=== PATIENT | female | born 1980 | race African-American/Black ===

== ENCOUNTER 2016-12-09 06:25 | Day surgery (SDC) | payer MEDICAID ==
[2016-12-08 10:51] VITALS: BMI 25.6
[2016-12-09] VITALS (12 sets, daily range): BP systolic 94–158; BP diastolic 49–85; PULSE 66–93; RESP 15–19; Ht 167.6 cm; Wt 70.3 kg
[~2016-12-09] VITALS: Ht 167.6 cm; Wt 70.3 kg
[2016-12-09] MEDS ORDERED: LIDOCAINE 2% (SDV) 5 ML INJ ONE (07:00)
[2016-12-09 07:27] LABS: ADD SCAN DIFF NO
[2016-12-09] MEDS ORDERED: ISOSULFAN BLUE 1% 5 ML INJ SC ONE (07:38)
[2016-12-09 07:46] LABS: INR 0.97; PROTIME 12.9 Sec (12.2-14.2)
[2016-12-09] MEDS ORDERED: MIDAZOLAM 1 MG/ML 2 ML INJ ONE (07:48)
[2016-12-09] MEDS ORDERED: GLYCOPYRROLATE 0.4 MG INJ ONE (07:48)
[2016-12-09] MEDS ORDERED: NEOSTIGMINE 3 MG/3 ML SYRINGE ONE (07:48)
[2016-12-09] MEDS ORDERED: FENTAnyl 50 MCG/ML VIAL ONE ×2 (07:48→08:42)
[2016-12-09] MEDS ORDERED: ROCURONIUM 50 MG INJ ONE (07:48)
[2016-12-09] MEDS ORDERED: PROPOFOL 20 ML ONE (07:48)
[2016-12-09] MEDS ORDERED: ONDANSETRON 4 MG INJ ONE (07:48)
[2016-12-09] MEDS ORDERED: CEFAZOLIN 1 GM INJ ONE (07:48)
[2016-12-09] MEDS ORDERED: DEXAMETHASONE 4 MG/ML 1 ML INJ ONE (07:49)
[2016-12-09 07:51] LABS: ALBUMIN 4.2 g/dl (3.3-4.9); ALBUMIN/GLOBULIN RATIO 1.1; BILIRUBIN,INDIRECT 0.1 mg/dl (0-1.1); BILIRUBIN,TOTAL 0.1 mg/dl (0.2-1.3); POTASSIUM 4.3 mmol/L (3.5-5.1)
[2016-12-09 07:52] LABS: CALCIUM 9.1 mg/dl (8.4-10.2); CREATININE 0.63 mg/dl (0.44-1.00)
[2016-12-09 08:02] LABS: BASOPHILS % 0.4 % (0.0-2.0); EOSINOPHILS % 0.8 % (0.0-7.0); HEMATOCRIT 32.3 % (37.0-47.0); HEMOGLOBIN 9.7 g/dl (12.0-16.0); LYMPHOCYTES % 41.1 % (15.0-51.0); MEAN CORPUSCULAR HEMOGLOBIN 22.1 pg (29.0-33.0); MEAN CORPUSCULAR VOLUME 73.7 fl (82.0-101.0); MEAN PLATELET VOLUME 10.4 fl (7.4-10.4); MONOCYTE # 0.5 10^3/ul (0.3-0.9); MONOCYTES % 10.9 % (0.0-11.0); NEUTROPHIL # 2.3 10^3/ul (1.6-7.5); NEUTROPHILS % 46.6 % (39.0-77.0); PLATELET COUNT 335 10^3/UL (140-415); RED BLOOD COUNT 4.38 10^6/ul (4.20-5.40); RED CELL DISTRIBUTION WIDTH 15.7 % (11.5-14.5)
[2016-12-09 08:29] LABS: PARTIAL THROMBOPLASTIN TIME 20.9 Sec (25.0-35.0)
[2016-12-09] MEDS ORDERED: HYDROmorphONE (0.2 MG/ML) 10ML SYG IV PRN ×2 (09:00)
[2016-12-09] MEDS ORDERED: DIPHENHYDRAMINE 50 MG INJ IV PRN (09:00)
[2016-12-09] MEDS ORDERED: FENTAnyl 50 MCG/ML VIAL IV PRN ×3 (09:00)
[2016-12-09] MEDS ORDERED: TRIMETHOBENZAMIDE 100 MG/ML VIAL IM PRN (09:00)
[2016-12-09] MEDS ORDERED: hydrALAzine 20 MG INJ IV PRN (09:00)
[2016-12-09] MEDS ORDERED: MEPERIDINE 25 MG INJ IV PRN (09:00)
[2016-12-09] MEDS ORDERED: EPHEDrine SULFATE 50 MG/5 ML SYG IV PRN (09:00)
[2016-12-09] MEDS ORDERED: ONDANSETRON 4 MG INJ IV PRN ×2 (09:00→10:00)
[2016-12-09] MEDS ORDERED: MIDAZOLAM 1 MG/ML 2 ML INJ IV PRN (09:00)
[2016-12-09] MEDS ORDERED: LABETALOL HCL 20MG INJ IV PRN (09:00)
[2016-12-09] MEDS ORDERED: SUGAMMADEX SODIUM 200 MG/2 ML VIAL IV ONE (09:32)
[2016-12-09] MEDS ORDERED: METOCLOPRAMIDE 10 MG INJ ONE (09:37)
[2016-12-09] MEDS ORDERED: ACETAMINOPHEN 1000MG/100ML IV 100 ML IVPB PRN (10:00)
[2016-12-09] MEDS ORDERED: D5W-0.45 NACL + KCL 20 MEQ 1,000 ML IV SCH (10:00)
[2016-12-09] MEDS ORDERED: morphine 2 MG INJ IV PRN (10:00)
--- NOTE | 2016-12-09 10:14 | OPR ---
DATE OF OPERATION: 12/09/2016 PREOPERATIVE DIAGNOSIS: Invasive cancer, left breast. POSTOPERATIVE DIAGNOSIS: Invasive cancer, left breast. OPERATION PERFORMED: Left partial mastectomy and axillary dissection utilizing sentinel lymph node technique. ANESTHESIA: General. ANESTHESIOLOGIST: Dr. Quintero SURGEON: Nick Giraldo MD POWER PLANT SUPERINTENDENT: Dr. Barnett INDICATIONS FOR PROCEDURE: The patient is an unfortunate 36-year-old female who noticed an enlargin g mass in her left breast that was at least 3 cm. Radiographic workup and subsequent biopsy reveale d invasive cancer. She was counseled as to the need for surgery. She consented and was scheduled f or a left partial mastectomy and axillary dissection utilizing sentinel lymph node technique. DESCRIPTION OF PROCEDURE: The patient was brought to the operating theater and placed under general endotracheal tube anesthesia. The left breast and axillary region was prepped and draped in the [facility] sterile fashion. Approximately 4 mL of 1% Lymphazurin blue dye were then injected peritumorally and the breast was gently massaged for approximately 12 minutes. At this point, a 4-cm incision wa s made in the left axillary hairline. The subcutaneous tissue was dissected with cautery down throu gh the clavipectoral fascia. A dye-stained lymphatic was identified and traced to a sentinel node. There were some additional enlarged nodes. Based on the size of the primary tumor, Dr. Giraldo made the decision to proceed with a level 1 dissection. With blunt dissection along the chest wall the l matheus thoracic nerve was identified and kept out of harm's way. More superiorly the axillary vein and thoracodorsal neurovascular bundles were identified and kept out of harm's way. Node-bearing tissu e between the long thoracic nerve and thoracodorsal nerve was then meticulously harvested using the LigaSure device. The sentinel node was marked and evaluated intraoperatively with cytology. This was performed by attending pathologist, Dr. Glenys Riddle. The cytology was negative for obvious metas tatic disease. Therefore, the specimen was sent for permanent pathologic analysis and no additional lymph nodes were removed. The wound was irrigated. A #10 Kyrgyz Kingsley-Dalton drain was then brou ght through the left mid axillary line, cut to size, and laid within the axilla. It was secured in place with 2-0 nylon suture in the standard fashion. The skin was then reapproximated with a 4-0 Petey ryl suture in subcuticular fashion. Attention was then directed to performing a partial mastectomy. A periareolar incision was made fro m the 3 o'clock location through the 6 o'clock location to the 9 o'clock location. Subcutaneous tis sierra was dissected with cautery. Wide circumferential dissection of the tissue associated with the m ass then took place, taking great care to ensure adequate margin. The specimen was elevated, transe cted and oriented. It was then inspected by Dr. Giraldo and there was a concern that the margin would be inadequate, primarily the superior portion of the resection, but partially on the medial; theref ore, additional superior margin tissue was resected, oriented and sent separately for permanent path ologic analysis. The wound was irrigated. Minimal bleeding was controlled with cautery. The incis ion was then closed in 2-layer fashion with a layer of 4-0 Vicryl sutures placed in deep dermal fash ion, followed by 5-0 PDS in subcuticular fashion. Benzoin and Steri-Strips were then applied to bot h incisions. The patient tolerated the procedure well. Estimated blood loss was 30 mL. There were no complications and the patient was transported in stable condition to the recovery room. Dictated By: NICK GUTHRIE/TALITA Conf#: [id number] DID#: [id number]
[2016-12-09] MEDS: HYDROmorphONE (0.2 MG/ML) 10ML SYG IV PRN ×2 (10:15→10:28)
[2016-12-09] MEDS ORDERED: HYDROCODONE/APAP (5/325) TAB PO ONE (11:00)
[2016-12-09] MEDS ORDERED: CEFAZOLIN 2 GM/50 ML (PMX) 50 ML IVPB ONE (12:00)
[2016-12-09] MEDS ORDERED: SOD CHLORIDE 0.9% 1,000 ML IV SCH (12:00)
== END 2016-12-09 12:20 | disposition home or self-care (01) ==
LOC: SDS 06:25
PROVIDERS: ATTEND Surgery Surgical Oncology
DX: D05.12 Intraductal carcinoma in situ of left breast (principal)
CPT/HCPCS: 19301; 38500; 38792; 80053; 85025; 85610; 85730; 88307; 88331; J0690; J1100; J1170; J2250; J2405; J2765; J3010; Z7512; Z7610; J2710; Q9968

== ENCOUNTER 2017-05-03 05:43 | Day surgery (SDC) | payer BC, MEDICAID ==
[2017-05-02 11:22] VITALS: BMI 26.7
[~2017-05-03] VITALS: Ht 167.6 cm; Wt 72.7 kg
[2017-05-03] VITALS (10 sets, daily range): BP systolic 106–114; BP diastolic 67–75; PULSE 59–77; RESP 12–18; Ht 167.6 cm; Wt 72.7 kg
[2017-05-03] MEDS ORDERED: HYDR-905 PO (06:45)
[2017-05-03] MEDS ORDERED: SODIUM CL BACTERIOSTATIC 30 ML INJ ONE (06:54)
[2017-05-03] MEDS ORDERED: GENTAMICIN 80 MG INJ ONE (06:54)
[2017-05-03] MEDS ORDERED: POLYMYXIN/BACITRACIN 1L IRRIG ONE (06:54)
--- NOTE | 2017-05-03 07:22 | HPN ---
Date/Time of Note Date/Time of Note DATE: 05/03/17 TIME: 07:22 Interval H&P Admission Note Pt. seen H&P reviewed: No system changes MICHELLE PERKINS MD May 03, 2017 07:22
[2017-05-03] MEDS ORDERED: BUPIVACAINE 0.5%/EPI (SDV) 30 ML INJ ONE (07:23)
[2017-05-03] MEDS ORDERED: ROCURONIUM 50 MG INJ ONE (07:56)
[2017-05-03] MEDS ORDERED: LIDOCAINE 2% (SDV) 5 ML INJ ONE (07:56)
[2017-05-03] MEDS ORDERED: PROPOFOL 20 ML ONE (07:56)
[2017-05-03] MEDS ORDERED: DEXAMETHASONE 4 MG/ML 1 ML INJ ONE (07:56)
[2017-05-03] MEDS ORDERED: ONDANSETRON 4 MG INJ ONE (07:57)
[2017-05-03] MEDS ORDERED: morphine 2 MG INJ IV PRN (08:00)
[2017-05-03] MEDS ORDERED: ONDANSETRON 4 MG INJ IV PRN ×2 (08:00→09:00)
[2017-05-03] MEDS ORDERED: OXYCODONE/ACETAMINOPHEN (5/325) TAB PO PRN ×3 (08:00→09:00)
[2017-05-03] MEDS ORDERED: GLYCOPYRROLATE 0.4 MG INJ ONE (08:41)
[2017-05-03] MEDS ORDERED: NEOSTIGMINE 3 MG/3 ML SYRINGE ONE (08:41)
--- NOTE | 2017-05-03 08:54 | OPR ---
Date/Time of Note Date/Time of Note DATE: 05/03/17 TIME: 08:45 Operative Report Free Text/Dictation Plastic Surgery Operative Report Preoperative diagnosis: left breast CA Postoperative diagnosis: same Procedure: bilateral nipple delay with subareolar biopsy Surgeon: yara Davis.:n/a Anesthesia: general EBL: min IV fluids: per flow sheet Findings: n/a Complications: none Dispo:home Indications for procedure: 36yo F presents for a bilateral nipple delay and subareolar biopsy as a staged procedure before her upcoming mastectomy. The risks, benefits, alternatives of performing this procedure were discussed with the patient including the risks of bleeding, infection, wound healing problems, asymmetry, partial or total nipple necrosis, positive margins and need for nipple excision, his nipple sensation, and the patient states that she understands these risks and would like to proceed with the procedure. All questions were answered, no guarantees were given with regards to the outcome of this procedure. Description of procedure: The patient was brought to the operating room at [facility] where general anesthesia was induced. Next, the patient was prepped and draped in usual sterile fashion with ChloraPrep. An inferior periareolar with lateral extension incision was marked, and then a total of 5 cc of 0.5% Marcaine with 1: 200,000 epinephrine were injected into the planned incision site in each breast. The 10 blade was then used to make an incision in the right breast in the marked location, and then the electrocautery was used to dissect into the subcutaneous tissue. The mastectomy flap was elevated to the areolar border using electrocautery. Next, the 10 blade was used to dissect underneath the areola in the subdermal plane. Once the superior border of the area was reached, dissection proceeded with the scissors until the subcutaneous mastectomy plane was entered once again. This effectively created the pedicle for the nipple. Next, the areola was everted, and then a subareolar biopsy was taken directly underneath the nipple using a 15 blade. This was sent for pathology. The breast was then irrigated with antibiotic irrigation, hemostasis was achieved with electrocautery, and then the incision was closed with 3-0 Vicryl suture and 4-0 nylon suture. A similar procedure was carried out on the contralateral breast. The 10 blade was used to make an incision in the left breast in the marked location, and then the electrocautery was used to dissect into the subcutaneous tissue. The mastectomy flap was elevated to the areolar border using electrocautery. Next, the 10 blade was used to dissect underneath the areola in the subdermal plane. Once the superior border of the area was reached, dissection proceeded with the scissors until the subcutaneous mastectomy plane was entered once again. This effectively created the pedicle for the nipple. Next, the areola was everted, and then a subareolar biopsy was taken directly underneath the nipple using a 15 blade. This was sent for pathology. The breast was then irrigated with antibiotic irrigation, hemostasis was achieved with electrocautery, and then the incision was closed with 3-0 Vicryl suture and 4-0 nylon suture. The patient tolerated the procedure well, there were no complications, follow- up information and wound care instructions were given. Her mastectomy will be in 2 weeks. Preoperative Diagnosis left breast CA Postoperative Diagnosis left breast CA Surgeon see signature line Accounting Administrator none Anesthesia Type: general Estimated Blood Loss: minimal Transfusion none Specimen left and right subareolar biopsy Grafts/Implants none Complications none Procedure Description see free text MICHELLE PERKINS MD May 03, 2017 08:54
[2017-05-03] MEDS ORDERED: MEPERIDINE 25 MG INJ ONE (08:57)
[2017-05-03] MEDS ORDERED: BUPIVACAINE 0.5%/EPI (SDV) 30 ML INJ INJ ONE (08:58)
[2017-05-03] MEDS ORDERED: EPHEDrine SULFATE 50 MG/5 ML SYG IV PRN (09:00)
[2017-05-03] MEDS ORDERED: METOCLOPRAMIDE 10 MG INJ IV PRN (09:00)
[2017-05-03] MEDS ORDERED: LABETALOL HCL 20MG INJ IV PRN (09:00)
[2017-05-03] MEDS ORDERED: MEPERIDINE 25 MG INJ IV PRN (09:00)
[2017-05-03] MEDS ORDERED: KETOROLAC 30 MG INJ IV PRN (09:00)
[2017-05-03] MEDS ORDERED: DIPHENHYDRAMINE 50 MG INJ IV PRN (09:00)
[2017-05-03] MEDS ORDERED: morphine (1 MG/ML) 10ML SYRINGE IV PRN ×3 (09:00)
[2017-05-03] MEDS ORDERED: hydrALAzine 20 MG INJ IV PRN (09:00)
[2017-05-03] MEDS ORDERED: FENTAnyl 50 MCG/ML VIAL IV PRN ×3 (09:00)
== END 2017-05-03 10:55 | disposition home or self-care (01) ==
LOC: SDS 05:43 → EDSTATUS 07:30 → SDS 10:55
PROVIDERS: ATTEND Surgery Plastic and Reconstructive Surgery
DX: C50.912 Malignant neoplasm of unspecified site of left female breast (principal)
CPT/HCPCS: 84703; 88307; J1100; J1580; J1885; J2175; J2405; J2710; J3010

== ENCOUNTER 2017-05-17 06:07 | Inpatient (IN) | payer BC ==
[2017-05-16 15:21] VITALS: BMI 25.9
[2017-05-17] VITALS (28 sets, daily range): BP systolic 101–133; BP diastolic 43–79; PULSE 74–102; RESP 16–27; Ht 167.6 cm; Wt 72.1 kg
[~2017-05-17] VITALS: Ht 167.6 cm; Wt 72.1 kg
[~2017-05-17 06:07] MED LIST: CEFAZOLIN 1 GM/50 ML (PMX) 50 ML IVPB ONE; EXEDRINE; HYDR-905 PO; SOD CHLORIDE 0.9% 1,000 ML IV SCH
[2017-05-17] MEDS ORDERED: BUPIVACAINE 0.5%/EPI (SDV) 30 ML INJ ONE (07:01)
[2017-05-17] MEDS ORDERED: SODIUM CL BACTERIOSTATIC 30 ML INJ ONE ×2 (07:01→07:06)
[2017-05-17] MEDS ORDERED: GENTAMICIN 80 MG INJ ONE ×2 (07:01→10:08)
[2017-05-17] MEDS ORDERED: EPINEPHrine 1 MG INJ ONE (07:02)
[2017-05-17] MEDS ORDERED: POLYMYXIN/BACITRACIN 1L IRRIG ONE ×2 (07:02→10:08)
--- NOTE | 2017-05-17 07:33 | HPN ---
Date/Time of Note Date/Time of Note DATE: 05/17/17 TIME: 07:32 Interval H&P Admission Note Pt. seen H&P reviewed: No system changes MICHELLE PERKINS MD May 17, 2017 07:33
[2017-05-17] MEDS ORDERED: DEXAMETHASONE 4 MG/ML 1 ML INJ ONE (07:42)
[2017-05-17] MEDS ORDERED: ROCURONIUM 50 MG INJ ONE ×2 (07:42→10:39)
[2017-05-17] MEDS ORDERED: MIDAZOLAM 1 MG/ML 2 ML INJ ONE (07:42)
[2017-05-17] MEDS ORDERED: HYDROmorphONE 2 MG/ML SYG ONE (07:42)
[2017-05-17] MEDS ORDERED: PROPOFOL 20 ML ONE (07:42)
[2017-05-17] MEDS ORDERED: BUPIVACAINE LIPOSOME/PF 266 MG/20 ML VIAL INFIL SCH (08:00)
[2017-05-17] MEDS ORDERED: CEFAZOLIN 1 GM INJ ONE (08:01)
[2017-05-17] MEDS ORDERED: NEOSTIGMINE 3 MG/3 ML SYRINGE ONE (08:01)
[2017-05-17] MEDS ORDERED: GLYCOPYRROLATE 0.4 MG INJ ONE (08:01)
[2017-05-17] MEDS ORDERED: EPHEDrine SULFATE 50 MG/5 ML SYG ONE (08:02)
[2017-05-17] MEDS ORDERED: ONDANSETRON 4 MG INJ IV PRN (08:30)
[2017-05-17] MEDS ORDERED: MEPERIDINE 25 MG INJ IV PRN (08:30)
[2017-05-17] MEDS ORDERED: HYDROmorphONE (0.2 MG/ML) 10ML SYG IV PRN ×3 (08:30)
[2017-05-17] MEDS ORDERED: DIPHENHYDRAMINE 50 MG INJ IV PRN (08:30)
[2017-05-17] MEDS ORDERED: METOCLOPRAMIDE 10 MG INJ IV PRN (08:30)
[2017-05-17] MEDS ORDERED: METOCLOPRAMIDE 10 MG INJ ONE (12:35)
[2017-05-17] MEDS ORDERED: NITROGLYCERIN 2% 30 GM OINT TOP SCH (13:00)
--- NOTE | 2017-05-17 13:03 | OPR ---
Date/Time of Note Date/Time of Note DATE: 05/17/17 TIME: 12:55 Operative Report Free Text/Dictation Plastic Surgery Operative Report Preoperative diagnosis: left breast cancer Postoperative diagnosis: same Procedure: bilateral breast reconstruction with tissue expanders and alloderm Surgeon: yara Davis.:tyrone Anesthesia:gen EBL:min IV fluids: per flow sheet Findings:n/a Complications: none Dispo: floor Indications for procedure: 36 yo F patient presents for bilateral tissue diesel locomotive firer breast reconstruction. The risks, benefits, and alternatives of performing this procedure were discussed with the patient including the risks of bleeding, infection, wound healing problems, diesel locomotive firer extrusion, pain and tightness, need for removal, partial or total nipple necrosis, asymmetry, need for revision, seroma. We discussed that if radiation is involved, it may alter the outcome. The risk of asymmetry and need for revision surgery were also discussed. The patient states that she understands these risks and would like to proceed with the procedure. All questions were answered, no guarantees were given with regards the outcome of this procedure. Description of procedure: The patient was brought to the operating room at [facility] where general anesthesia was induced, and the patient was prepped and draped in the usual sterile fashion. The mastectomy was performed by Dr. Odell and will be dictated separately. At the completion of that portion of the case, I scrubbed into the case, and irrigated the breasts with extensive antibiotic irrigation to remove all loose fat particles. Next, meticulous hemostasis was achieved with the bipolar cautery. An additional round of irrigation and hemostasis was carried out. The 0 Vicryl suture was used to tack the lateral chest wall back to the lateral breast in multiple places with 0 Vicryl suture. Next, the breast was inspected, and a piece of AlloDerm contour medium was opened, rinsed in normal saline to remove the preservative, and was anchored in place medially, inferiorly, and laterally to re-create the lower border of the left breast with 2-0 Vicryl suture. Next, the cautery was used to enter the lateral border of the subpectoral space, and then the pectoralis muscle was elevated from lateral to medial on its inferior surface, and was released inferiorly. The base width was then measured and was found to be approximately 13cm. Attention was turned to the contralateral breast where a similar procedure was carried out. Next, meticulous hemostasis was achieved with the bipolar cautery. An additional round of irrigation and hemostasis was carried out. The 0 Vicryl suture was used to tack the lateral chest wall back to the lateral breast in multiple places with 0 Vicryl suture. Next, the breast was inspected , and a piece of AlloDerm contour medium was opened, rinsed in normal saline to remove the preservative, and was anchored in place medially, inferiorly, and laterally to re-create the lower border of the left breast with 2-0 Vicryl suture. Next, the cautery was used to enter the lateral border of the subpectoral space, and then the pectoralis muscle was elevated from lateral to medial on its inferior surface, and was released inferiorly. The base width was then measured and was found to be approximately 13cm. Therefore, an [employer] [id number] tissue diesel locomotive firer was opened, rinsed in antibiotic irrigation, the air was evacuated, and then gloves were changed and this was inserted into the right breast and was sutured in place with 2-0 Vicryl suture. Next, a total of 60 cc of sterile saline was injected into the diesel locomotive firer. Finally, the pectoralis muscle was anchored to the AlloDerm, and then an additional round of hemostasis and irrigation was carried out. 30 cc of a dilute exparel solution was injected around the breast, and 2 x 15 Cyril drains were inserted through a stab incision in the axilla and were secured in place with 2-0 nylon suture. The same size and style diesel locomotive firer was opened, rinsed in antibiotic irrigation, the air was evacuated, and then gloves were changed and this was inserted into the right breast and was sutured in place with 2-0 Vicryl suture. Next, a total of 60 cc of sterile saline was injected into the diesel locomotive firer. Finally, the pectoralis muscle was anchored to the AlloDerm, and then an additional round of hemostasis and irrigation was carried out. 30 cc of a dilute exparel solution was injected around the breast, and 2 x 15 Cyril drains were inserted through a stab incision in the axilla and were secured in place with 2-0 nylon suture. The breasts were then closed with 3-0 Vicryl suture and 4-0 Monocryl suture and was dressed with Dermabond, Tegaderm, and an ABD. an additional 360 cc of saline were injected into each breast to give a total of 420 cc. This did not place undue tension on the skin flaps. The breasts were dressed with Tegaderm and ABDs. The patient tolerated this procedure well, there were no complications, she will remain tonight. Preoperative Diagnosis left breast cancer Postoperative Diagnosis same Surgeon see signature line Normalizer dr. hansen Anesthesia Type: general Estimated Blood Loss: minimal Transfusion none Specimen per dr. odell portion of the procedure Grafts/Implants bilateral breast tissue expanders and alloderm Complications none Procedure Description see dictation MICHELLE PERKINS MD May 17, 2017 13:03
--- NOTE | 2017-05-17 13:03 | OPR ---
Date/Time of Note Date/Time of Note DATE: 05/17/17 TIME: 12:55 Operative Report Free Text/Dictation Plastic Surgery Operative Report Preoperative diagnosis: left breast cancer Postoperative diagnosis: same Procedure: bilateral breast reconstruction with tissue expanders and alloderm Surgeon: yara Davis.:tyrone Anesthesia:gen EBL:min IV fluids: per flow sheet Findings:n/a Complications: none Dispo: floor Indications for procedure: 36 yo F patient presents for bilateral tissue dot net architect breast reconstruction. The risks, benefits, and alternatives of performing this procedure were discussed with the patient including the risks of bleeding, infection, wound healing problems, dot net architect extrusion, pain and tightness, need for removal, partial or total nipple necrosis, asymmetry, need for revision, seroma. We discussed that if radiation is involved, it may alter the outcome. The risk of asymmetry and need for revision surgery were also discussed. The patient states that she understands these risks and would like to proceed with the procedure. All questions were answered, no guarantees were given with regards the outcome of this procedure. Description of procedure: The patient was brought to the operating room at [facility] where general anesthesia was induced, and the patient was prepped and draped in the usual sterile fashion. The mastectomy was performed by Dr. Odell and will be dictated separately. At the completion of that portion of the case, I scrubbed into the case, and irrigated the breasts with extensive antibiotic irrigation to remove all loose fat particles. Next, meticulous hemostasis was achieved with the bipolar cautery. An additional round of irrigation and hemostasis was carried out. The 0 Vicryl suture was used to tack the lateral chest wall back to the lateral breast in multiple places with 0 Vicryl suture. Next, the breast was inspected, and a piece of AlloDerm contour medium was opened, rinsed in normal saline to remove the preservative, and was anchored in place medially, inferiorly, and laterally to re-create the lower border of the left breast with 2-0 Vicryl suture. Next, the cautery was used to enter the lateral border of the subpectoral space, and then the pectoralis muscle was elevated from lateral to medial on its inferior surface, and was released inferiorly. The base width was then measured and was found to be approximately 13cm. Attention was turned to the contralateral breast where a similar procedure was carried out. Next, meticulous hemostasis was achieved with the bipolar cautery. An additional round of irrigation and hemostasis was carried out. The 0 Vicryl suture was used to tack the lateral chest wall back to the lateral breast in multiple places with 0 Vicryl suture. Next, the breast was inspected , and a piece of AlloDerm contour medium was opened, rinsed in normal saline to remove the preservative, and was anchored in place medially, inferiorly, and laterally to re-create the lower border of the left breast with 2-0 Vicryl suture. Next, the cautery was used to enter the lateral border of the subpectoral space, and then the pectoralis muscle was elevated from lateral to medial on its inferior surface, and was released inferiorly. The base width was then measured and was found to be approximately 13cm. Therefore, an [employer] [id number] tissue dot net architect was opened, rinsed in antibiotic irrigation, the air was evacuated, and then gloves were changed and this was inserted into the right breast and was sutured in place with 2-0 Vicryl suture. Next, a total of 60 cc of sterile saline was injected into the dot net architect. Finally, the pectoralis muscle was anchored to the AlloDerm, and then an additional round of hemostasis and irrigation was carried out. 30 cc of a dilute exparel solution was injected around the breast, and 2 x 15 Cyril drains were inserted through a stab incision in the axilla and were secured in place with 2-0 nylon suture. The same size and style dot net architect was opened, rinsed in antibiotic irrigation, the air was evacuated, and then gloves were changed and this was inserted into the right breast and was sutured in place with 2-0 Vicryl suture. Next, a total of 60 cc of sterile saline was injected into the dot net architect. Finally, the pectoralis muscle was anchored to the AlloDerm, and then an additional round of hemostasis and irrigation was carried out. 30 cc of a dilute exparel solution was injected around the breast, and 2 x 15 Cyril drains were inserted through a stab incision in the axilla and were secured in place with 2-0 nylon suture. The breasts were then closed with 3-0 Vicryl suture and 4-0 Monocryl suture and was dressed with Dermabond, Tegaderm, and an ABD. an additional 360 cc of saline were injected into each breast to give a total of 420 cc. This did not place undue tension on the skin flaps. The breasts were dressed with Tegaderm and ABDs. The patient tolerated this procedure well, there were no complications, she will remain tonight. Preoperative Diagnosis left breast cancer Postoperative Diagnosis same Surgeon see signature line Scrap Preparation Supervisor dr. hansen Anesthesia Type: general Estimated Blood Loss: minimal Transfusion none Specimen per dr. odell portion of the procedure Grafts/Implants bilateral breast tissue expanders and alloderm Complications none Procedure Description see dictation MICHELLE PERKINS MD May 17, 2017 13:03
--- NOTE | 2017-05-17 13:03 | OPR ---
Date/Time of Note Date/Time of Note DATE: 05/17/17 TIME: 12:55 Operative Report Free Text/Dictation Plastic Surgery Operative Report Preoperative diagnosis: left breast cancer Postoperative diagnosis: same Procedure: bilateral breast reconstruction with tissue expanders and alloderm Surgeon: yara Davis.:tyrone Anesthesia:gen EBL:min IV fluids: per flow sheet Findings:n/a Complications: none Dispo: floor Indications for procedure: 36 yo F patient presents for bilateral tissue tubing tester breast reconstruction. The risks, benefits, and alternatives of performing this procedure were discussed with the patient including the risks of bleeding, infection, wound healing problems, tubing tester extrusion, pain and tightness, need for removal, partial or total nipple necrosis, asymmetry, need for revision, seroma. We discussed that if radiation is involved, it may alter the outcome. The risk of asymmetry and need for revision surgery were also discussed. The patient states that she understands these risks and would like to proceed with the procedure. All questions were answered, no guarantees were given with regards the outcome of this procedure. Description of procedure: The patient was brought to the operating room at [facility] where general anesthesia was induced, and the patient was prepped and draped in the usual sterile fashion. The mastectomy was performed by Dr. Odell and will be dictated separately. At the completion of that portion of the case, I scrubbed into the case, and irrigated the breasts with extensive antibiotic irrigation to remove all loose fat particles. Next, meticulous hemostasis was achieved with the bipolar cautery. An additional round of irrigation and hemostasis was carried out. The 0 Vicryl suture was used to tack the lateral chest wall back to the lateral breast in multiple places with 0 Vicryl suture. Next, the breast was inspected, and a piece of AlloDerm contour medium was opened, rinsed in normal saline to remove the preservative, and was anchored in place medially, inferiorly, and laterally to re-create the lower border of the left breast with 2-0 Vicryl suture. Next, the cautery was used to enter the lateral border of the subpectoral space, and then the pectoralis muscle was elevated from lateral to medial on its inferior surface, and was released inferiorly. The base width was then measured and was found to be approximately 13cm. Attention was turned to the contralateral breast where a similar procedure was carried out. Next, meticulous hemostasis was achieved with the bipolar cautery. An additional round of irrigation and hemostasis was carried out. The 0 Vicryl suture was used to tack the lateral chest wall back to the lateral breast in multiple places with 0 Vicryl suture. Next, the breast was inspected , and a piece of AlloDerm contour medium was opened, rinsed in normal saline to remove the preservative, and was anchored in place medially, inferiorly, and laterally to re-create the lower border of the left breast with 2-0 Vicryl suture. Next, the cautery was used to enter the lateral border of the subpectoral space, and then the pectoralis muscle was elevated from lateral to medial on its inferior surface, and was released inferiorly. The base width was then measured and was found to be approximately 13cm. Therefore, an Yaphiean [id number] tissue tubing tester was opened, rinsed in antibiotic irrigation, the air was evacuated, and then gloves were changed and this was inserted into the right breast and was sutured in place with 2-0 Vicryl suture. Next, a total of 60 cc of sterile saline was injected into the tubing tester. Finally, the pectoralis muscle was anchored to the AlloDerm, and then an additional round of hemostasis and irrigation was carried out. 30 cc of a dilute exparel solution was injected around the breast, and 2 x 15 [place] drains were inserted through a stab incision in the axilla and were secured in place with 2-0 nylon suture. The same size and style tubing tester was opened, rinsed in antibiotic irrigation, the air was evacuated, and then gloves were changed and this was inserted into the right breast and was sutured in place with 2-0 Vicryl suture. Next, a total of 60 cc of sterile saline was injected into the tubing tester. Finally, the pectoralis muscle was anchored to the AlloDerm, and then an additional round of hemostasis and irrigation was carried out. 30 cc of a dilute exparel solution was injected around the breast, and 2 x 15 [place] drains were inserted through a stab incision in the axilla and were secured in place with 2-0 nylon suture. The breasts were then closed with 3-0 Vicryl suture and 4-0 Monocryl suture and was dressed with Dermabond, Tegaderm, and an ABD. an additional 360 cc of saline were injected into each breast to give a total of 420 cc. [address] did not [address] undue tension on the skin flaps. The breasts were dressed with Tegaderm and ABDs. The patient tolerated this procedure well, there were no complications, she will remain tonight. Preoperative Diagnosis left breast cancer Postoperative Diagnosis same Surgeon see signature line Radiologist dr. hansen Anesthesia Type: general Estimated Blood Loss: minimal Transfusion none Specimen per dr. odell portion of the procedure Grafts/Implants bilateral breast tissue expanders and alloderm Complications none Procedure Description see dictation MICHELLE PERKINS MD May 17, 2017 13:03
--- NOTE | 2017-05-17 13:14 | OPR ---
DATE OF OPERATION: 05/17/2017 PREOPERATIVE DIAGNOSIS: The patient recently treated for invasive cancer of left breast found to arriola ve a positive BRCA gene mutation and requires bilateral prophylactic mastectomy with immediate recon struction. POSTOPERATIVE DIAGNOSES: The patient recently treated for invasive cancer of left breast found to h ave a positive BRCA gene mutation and requires bilateral prophylactic mastectomy with immediate elizabeth nstruction. OPERATION PERFORMED: Bilateral prophylactic nipple-sparing mastectomy. ANESTHESIA: General. ANESTHESIOLOGIST: Dr. Woo. SURGEON: Dr. Giraldo. PLASTIC SURGEON: Dr. Mc Chambers. MULTIPLE SPINDLE SCREW MACHINE OPERATOR: Dr. Reji Solis. INDICATIONS FOR PROCEDURE: The patient is an unfortunate 36-year-old female who was diagnosed with invasive cancer of her left breast, also found to be BRCA positive. She had previously undergone a breast conservation surgery, but after being identified as BRCA positive, decision was made to have her complete her chemotherapy and then proceed with bilateral prophylactic mastectomy. She was seen by the attending plastic surgeon, Dr. Mc Chambers who consulted her as to the benefits of bilater al nipple-sparing mastectomy and immediate reconstruction. She consented and was scheduled for surg mika. DESCRIPTION OF PROCEDURE: The patient was brought to the operating theater, placed under general an esthesia. The breast and axillary regions were prepped and draped in the usual sterile fashion bila terdominick. Dr. Bentley had previously performed a procedure for the lap elevation for nipple delay the refore there were bilateral incisions around the nipple areolar complex extending laterally. Starti ng on the left side, this incision was reopened by transecting the sutures and gently spreading the skin apart. [place] clamps were then placed on the skin edges and skin flaps were created seque ntially using cautery, first superiorly to the clavicle, then medially to the sternal border, inferi kolby to the inframammary fold and laterally until the latissimus dorsi muscle was identified through out its course. Mastectomy then took place from medial to lateral using cautery at the border of th e pectoralis major muscle, the pectoralis minor muscle was identified. The remaining axillary tail of the breast was then transected. Specimen was removed, oriented and sent for permanent pathologic analysis. Dr. Giraldo inspected the flaps was found that there was additional breast on the inferior portion of the breast, therefore, some additional inferior breast tissue was removed and sent for p ermanent pathologic analysis. Minimal bleeding was controlled with cautery, and the wound was packe d with warm saline soaked gauze. Attention was then directed to the right side. Again, the previous incision was incised and skin wa s gently spread. Allis-[place] clamps were then used to elevate the skin edges and the skin flaps wer e created in sequential fashion using cautery, first superiorly to the clavicle, then medially to th e sternal border, inferiorly to the inframammary fold and laterally until the latissimus dorsi muscl e was identified throughout its course. Mastectomy then took place from medial to lateral using cau kranthi at the border of the pectoralis major muscle, the pectoralis minor muscle was identified and th e residual tissue associated with the axillary tail was then resected. Specimen was removed, orient ed and sent for permanent pathologic analysis. Dr. Giraldo again inspected the flaps and additional t issue was removed from inferolateral region and sent separately for permanent pathologic analysis an d also a third sample from the medial portion of the flap and also sent separately for permanent pat hologic analysis. The wound was irrigated. Minimal bleeding was controlled with cautery, and a war m saline soaked gauze was then placed in the wound. This concluded Dr. Giraldo' portion of the operat ion. The total blood loss for Dr. Giraldo' portion of the operation was approximately 200 mL this poi nt, Dr. Mc Chambers entered the room, took over control of the operation were proceeded with her i mmediate reconstruction and he will dictate that portion separately. Dictated By: SOHAM GIRALDO MD TL/TALITA Conf#: [id number] DID#: [id number]
[2017-05-17] MEDS ORDERED: ACETAMINOPHEN 325 MG TAB PO PRN (13:30)
[2017-05-17] MEDS: HYDROmorphONE 0.5 MG/0.5 ML SYG IV PRN ×3 (15:30→23:01)
[2017-05-17] MEDS: LACTATED RINGER'S 1,000 ML IV SCH ×2 (15:36→21:24)
[2017-05-17] MEDS: CEFOTAXIME 1 GM/50 ML (PMX) 50 ML IVPB SCH ×3 (17:05→23:57)
[2017-05-17] MEDS: HYDROCODONE/APAP (10/325) TAB PO PRN (21:25)
[2017-05-18] MEDS: HYDROmorphONE 0.5 MG/0.5 ML SYG IV PRN ×5 (03:00→20:43)
[2017-05-18] MEDS: HYDROCODONE/APAP (10/325) TAB PO PRN ×3 (06:32→19:03)
[2017-05-18] MEDS: CEFOTAXIME 1 GM/50 ML (PMX) 50 ML IVPB SCH ×3 (06:33→21:38)
[2017-05-18] MEDS: LACTATED RINGER'S 1,000 ML IV SCH ×2 (06:33→17:17)
[2017-05-18 07:39] VITALS: BP 141/66; RESP 18
[2017-05-18] MEDS: DIPHENHYDRAMINE 50 MG INJ IV PRN ×2 (12:25→21:43)
[2017-05-18 13:27] VITALS: BP 123/61; RESP 19
[2017-05-18 20:00] VITALS: BP 128/61; RESP 18
--- NOTE | 2017-05-18 20:16 | PN ---
Date/Time of Note Date/Time of Note DATE: 05/18/17 TIME: 20:14 Assessment/Plan Lines/Catheters IV Catheter Type (from Nrsg): Peripheral IV Assessment/Plan Assessment/Plan the patient is healing as expected, however she is having significant pain. will keep her today and discharge tomorrow to continue receiving IV pain medication. Subjective 24 Hr Interval Summary no acute events overnight. patient c/o significant pain not managed with oral pain medication. Exam/Review of Systems Vital Signs Vitals Vital Signs Date Time Temp Pulse Resp B/P Pulse Ox O2 Delivery O2 Flow Rate FiO2 05/18/17 14:55 99.1 05/18/17 13:27 76 19 123/61 92 05/17/17 20:00 Nasal Cannula 2.0 Intake and Output 05/17/17 05/17/17 05/18/17 15:00 23:00 07:00 Intake Total 1900 ml 1050 ml 1450 ml Output Total 80 ml 95 ml 105 ml Balance 1820 ml 955 ml 1345 ml Exam Free Text/Dictation General: moderate distress breasts: breasts incisions intact, no erythema. nipples appear to have good cap refill Results Result Diagram: 05/17/17 0655 05/17/17 0655 MICHELLE PERKINS MD May 18, 2017 20:16
--- NOTE | 2017-05-18 23:37 | PN ---
DATE: 05/18/2017 The patient is a 36-year-old status post bilateral mastectomy for cancer of the left breast and post immediate reconstruction with tissue industrial electrician journeyman. SUBJECTIVE: Apparently, the patient has been running fever. Temperature high, up to 100.7 today mo rning and has not been eating as well. OBJECTIVE: VITAL SIGNS: Right now, temperature is 99.1, heart rate is 84, respirations 19, blood pressure 123/ 61, saturation 92% on room air. GENERAL: Awake, alert. HEART: Regular. LUNGS: Decreased breathing sounds at the bases. CHEST WALL: Four Kingsley-Dalton drains, 2 in each axilla area draining serosanguineous fluid. Wound s appear clean. ABDOMEN: Soft. LABORATORY: No labs have been done today. IMPRESSION: A 36-year-old female status post left breast cancer and BRCA positive for which she und erwent bilateral mastectomy and immediate reconstruction. It was done yesterday. Today, the patien t has been running fever, temperature high, up to 100.7, and the patient has been complaining of too much pain, so much that she requires to have [place] 10/325 and Dilaudid at the same time for control of the pain. PLAN: Will observe the patient overnight. The patient is on IV antibiotics, ceftriaxone 1 g IV q.8 hours. Will repeat CBC tomorrow. Dictated By: CASSIUS CALIXTO MD PS/NTS Conf#: [id number] DID#: [id number]
--- NOTE | 2017-05-18 23:37 | PN ---
DATE: 05/18/2017 The patient is a 36-year-old status post bilateral mastectomy for cancer of the left breast and post immediate reconstruction with tissue software design analyst. SUBJECTIVE: Apparently, the patient has been running fever. Temperature high, up to 100.7 today mo rning and has not been eating as well. OBJECTIVE: VITAL SIGNS: Right now, temperature is 99.1, heart rate is 84, respirations 19, blood pressure 123/ 61, saturation 92% on room air. GENERAL: Awake, alert. HEART: Regular. LUNGS: Decreased breathing sounds at the bases. CHEST WALL: Four Kingsley-Dalton drains, 2 in each axilla area draining serosanguineous fluid. Wound s appear clean. ABDOMEN: Soft. LABORATORY: No labs have been done today. IMPRESSION: A 36-year-old female status post left breast cancer and BRCA positive for which she und erwent bilateral mastectomy and immediate reconstruction. It was done yesterday. Today, the patien t has been running fever, temperature high, up to 100.7, and the patient has been complaining of too much pain, so much that she requires to have [place] 10/325 and Dilaudid at the same time for control of the pain. PLAN: Will observe the patient overnight. The patient is on IV antibiotics, ceftriaxone 1 g IV q.8 hours. Will repeat CBC tomorrow. Dictated By: CASSIUS CALIXTO MD PS/NTS Conf#: [id number] DID#: [id number]
--- NOTE | 2017-05-18 23:37 | PN ---
DATE: 05/18/2017 The patient is a 36-year-old status post bilateral mastectomy for cancer of the left breast and post immediate reconstruction with tissue gas prover. SUBJECTIVE: Apparently, the patient has been running fever. Temperature high, up to 100.7 today mo rning and has not been eating as well. OBJECTIVE: VITAL SIGNS: Right now, temperature is 99.1, heart rate is 84, respirations 19, blood pressure 123/ 61, saturation 92% on room air. GENERAL: Awake, alert. HEART: Regular. LUNGS: Decreased breathing sounds at the bases. CHEST WALL: Four Kingsley-Dalton drains, 2 in each axilla area draining serosanguineous fluid. Wound s appear clean. ABDOMEN: Soft. LABORATORY: No labs have been done today. IMPRESSION: A 36-year-old female status post left breast cancer and BRCA positive for which she und erwent bilateral mastectomy and immediate reconstruction. It was done yesterday. Today, the patien t has been running fever, temperature high, up to 100.7, and the patient has been complaining of too much pain, so much that she requires to have [place] 10/325 and Dilaudid at the same time for control of the pain. PLAN: Will observe the patient overnight. The patient is on IV antibiotics, ceftriaxone 1 g IV q.8 hours. Will repeat CBC tomorrow. Dictated By: CASSIUS CALIXTO MD PS/NTS Conf#: [id number] DID#: [id number]
[2017-05-19 02:15] VITALS: BP 123/61; RESP 18
[2017-05-19] MEDS: HYDROCODONE/APAP (10/325) TAB PO PRN ×2 (02:18→08:13)
[2017-05-19] MEDS: LACTATED RINGER'S 1,000 ML IV SCH (05:04)
[2017-05-19] MEDS: CEFOTAXIME 1 GM/50 ML (PMX) 50 ML IVPB SCH (06:29)
[2017-05-19 07:29] VITALS: BP 106/59; RESP 18
== END 2017-05-19 14:17 | disposition home or self-care (01) | DRG 583 ==
LOC: REC 06:07 → INTOOBSV 06:07 → EDSTATUS 07:30 → MS1 14:27 → OBSVTOIN 05-18 10:47
PROVIDERS: ADMIT Surgery Surgical Oncology; ATTEND Surgery Surgical Oncology
PROC: 0HTV0ZZ Resection of Bilateral Breast, Open Approach (ICD-10-PCS; principal; 2017-05-17 07:30)
PROC: 0HHV0NZ Insertion of Tissue Expander into Bilateral Breast, Open Approach (ICD-10-PCS; 2017-05-17 07:30)
DX: Z40.01 Encounter for prophylactic removal of breast (principal); C50.912 Malignant neoplasm of unspecified site of left female breast; Z15.01 Genetic susceptibility to malignant neoplasm of breast; Z17.0 Estrogen receptor positive status [ER+]; R50.9 Fever, unspecified; G89.18 Other acute postprocedural pain
CPT/HCPCS: 80053; 84703; 85025; 85610; 85730; 99217; C1789; C9290; G0378; J0171; J0690; J0698; J1100; J1170; J1200; J1580; J2175; J2250; J2405; J2710; J2765; J7030; J7120

== ENCOUNTER 2017-09-20 11:42 | Day surgery (SDC) | END 2017-09-20 18:19 | disposition home or self-care (01) ==

== ENCOUNTER 2018-03-21 08:07 | Day surgery (SDC) | END 2018-03-21 12:58 | disposition home or self-care (01) ==